=== PATIENT | female | born 1985 | race Caucasian/White ===

== ENCOUNTER 2025-09-22 11:38 | Outpatient (CLI) | payer OTHER | END 2025-09-22 13:35 | disposition home or self-care (01) | LOC: NST 11:38 | PROVIDERS: ATTEND Obstetrics & Gynecology | DX: Z34.83 Encounter for supervision of other normal pregnancy, third trimester (principal) ==

== ENCOUNTER 2025-10-11 13:05 | Inpatient (IN) | payer OTHER ==
[~2025-10-11] VITALS: Ht 167.6 cm; Wt 87.5 kg
[~2025-10-11 13:05] MED LIST: PRENATA CHEWAB1 EACH PO
[2025-10-11 13:46] LABS: BASO % 0.4 % (0.1-1.2); EOS # 0.02 (0.04-0.54); EOS % 0.3 % (0.7-7.0); LYMPH # 1.35 (1.18-3.74); LYMPH % 17.5 % (19.3-53.1); MEAN PLATELET VOLUME 10.80 fl (9.4-12.4); MONO # 0.45 (0.24-0.82); MONO % 5.8 % (4.7-12.5); NEUT # 5.62 (1.56-6.13); NEUT % 72.8 % (34.0-71.1); RED CELL DISTRIBUTION WIDTH 13.9 % (11.6-14.4)
[2025-10-11 13:48] LABS: URINE APPEARANCE Clear; URINE BILIRRUBIN Negative (NEGATIVE); URINE COLOR Yellow; URINE GLUCOSE Negative (NEGATIVE); URINE KETONE Trace (NEGATIVE); URINE LEUKOCYTE Trace; URINE NITRATE Negative; URINE PROTEIN 30 (NEGATIVE); URINE UROBILINOGEN 0.2 E.U./dl
[2025-10-11 13:52] LABS: URINE EPITHELIAL CELLS 19.6 uL (0.0-38.8); URINE RBC 19.6 uL (0.0-20.8); URINE WBC 71.0 uL (0.0-23.2)
[2025-10-11 13:53] LABS: URINE BLOOD TRACES; URINE CAST 0.43 uL (0.0-1.40)
[2025-10-11 14:07] LABS: INR < 0.93
[2025-10-11 14:52] LABS: ALT/SGPT 16.0 U/L (12-78); AST/SGOT 16.0 U/L (15-37); BILIRUBIN TOTAL 1.08 mg/dL (0.3-1.2); BUN CREA RATIO 14.0 (7.0-25.0); CREATININE SERUM 0.51 mg/dL (0.55-1.02); GFR 134.96; GLOBULINA 3.8 G/DL (2.4-3.5); GLUCOSE FASTING 81.0 mg/dL (65-100); OSMOLALITY SERUM 275.0 MOSM/KG (275-295)
[2025-10-13] MEDS ORDERED: IRON325 MG PO (05:58)
[2025-10-13 06:00] VITALS: BP 113/72
[2025-10-13] MEDS ORDERED: ERYTHROMYCIN BASE OPHT 1GM EACH TUBE OP ONE (09:45)
[2025-10-13] MEDS ORDERED: OXYTOCIN 20 UNITS/1000ML RL PIGGYBAG IV ONE (09:45)
[2025-10-13] MEDS ORDERED: CEFAZOLIN SODIUM 1,000 MG VIAL IV ONE (09:45)
[2025-10-13] MEDS ORDERED: TRIAMCINOLONE ACETONIDE 40 MG/ML VIAL IM ONE (10:00)
[2025-10-13] MEDS ORDERED: MORPHINE SULFATE 4 MG/ML CARTRIDGE IV PRN (10:00)
[2025-10-13] MEDS ORDERED: CITRIC ACID/SODIUM CITRATE 30 ML BLIST.PACK PO ONE (10:00)
[2025-10-13] MEDS ORDERED: RINGERS SOLUTION,LACTATED 1,000 ML IV SCH (10:00)
[2025-10-13] MEDS ORDERED: OXYTOCIN 1,000 ML IV ONE (10:00)
[2025-10-13 11:48] VITALS: BP 111/78
[2025-10-13] MEDS ORDERED: ACETAMINOPHEN 500 MG GEL..CAP PO SCH (12:00)
[2025-10-13] MEDS ORDERED: ONDANSETRON HCL 2 MG/ML VIAL IV SCH (12:00)
[2025-10-13] MEDS ORDERED: KETOROLAC TROMETHAMINE 30 MG VIAL IV SCH (12:00)
[2025-10-13 16:24] VITALS: BP 104/63
[2025-10-13] MEDS ORDERED: GABAPENTIN 300 MG CAPSULE PO SCH (17:00)
[2025-10-13 20:00] VITALS: BP 114/68
[2025-10-14] VITALS: BP 113/69
[2025-10-14 08:00] VITALS: BP 106/61
[2025-10-14] MEDS ORDERED: KETOROLAC TROMETHAMINE 10 MG TABLET PO SCH (08:00)
[2025-10-14 08:06] LABS: BASO % 0.1 % (0.1-1.2); EOS # 0.02 (0.04-0.54); EOS % 0.2 % (0.7-7.0); LYMPH # 1.22 (1.18-3.74); LYMPH % 12.6 % (19.3-53.1); MEAN PLATELET VOLUME 11.20 fl (9.4-12.4); MONO # 0.51 (0.24-0.82); MONO % 5.3 % (4.7-12.5); NEUT # 7.73 (1.56-6.13); NEUT % 79.8 % (34.0-71.1); RED CELL DISTRIBUTION WIDTH 14.0 % (11.6-14.4)
[2025-10-14] MEDS ORDERED: DOCUSATE SODIUM 100MG CAP PO SCH (09:00)
[2025-10-14 16:36] VITALS: BP 108/71
[2025-10-15 00:40] VITALS: BP 118/73
[2025-10-15] MEDS ORDERED: OxyCODONE HCL 5 MG TABLET (ROXICODONE) PO PRN (06:00)
[2025-10-15 08:52] VITALS: BP 110/70
== END 2025-10-15 16:40 | disposition home or self-care (01) | DRG 788 ==
LOC: OB/GYN 10-13 06:00 → O/R 10-13 06:00 → LDR 10-13 07:00 → OB/GYN 10-13 10:16 → LDR 10-13 11:31 → OB/GYN 10-15 16:40
PROVIDERS: ADMIT Obstetrics & Gynecology; ATTEND Obstetrics & Gynecology
PROC: 4A1HXCZ Monitoring of Products of Conception, Cardiac Rate, External Approach (ICD-10-PCS; 2025-10-13)
PROC: 10D00Z1 Extraction of Products of Conception, Low, Open Approach (ICD-10-PCS; principal; 2025-10-13 07:00)
DX: O34.211 Maternal care for low transverse scar from previous cesarean delivery (principal); Z3A.38 38 weeks gestation of pregnancy; Z37.0 Single live birth